=== PATIENT | female | born 1945 | race Caucasian/White ===

== ENCOUNTER → 2025-07-28 | Outpatient (CLI) | payer MEDICARE, SELFPAY ==
--- NOTE | 2025-07-28 12:38 | ECHOD_ITS ---
Reason For Study Reason For Study: ECTOPY Procedure This was a 2D Doppler, Color Flow transthoracic echocardiogram. Exam performed in department. Left Ventricle Normal-sized left ventricle. Normal left ventricular wall thickness. Left ventricular EF by Chang's biplane: 75%. Normal diastolic function. No regional wall motion abnormalities noted. Right Ventricle Normal right ventricle. Normal systolic function. Estimated RVSP less than 30 mmHg. Atria The left and right atria are normal. RA pressure estimated at 3 mmHg. Normal atrial septum. Mitral Valve Normal mitral valve. No mitral stenosis. Trace mitral regurgitation. Tricuspid Valve Normal tricuspid valve. Trace tricuspid regurgitation. No tricuspid stenosis. Aortic Valve Thickened aortic valve leaflets. Valve appears trileaflet. No aortic regurgitation. No hemodynamically significant aortic stenosis. Pulmonic Valve Normal pulmonic valve. Trace pulmonic regurgitation. No pulmonic stenosis. Great Vessels Aortic root and thoracic ascending aorta are poorly visualized on this examination. Pericardium/Pleural No pericardial effusion. Epicardial fat. MMode/2D Measurements & Calculations LVIDd: 4.1 cm IVSd: 0.81 cm LAV(MOD- bp): 34.4 ml LVIDs: 2.5 cm LVPWd: 0.93 cm LAV(MOD- bp) Indexed: 21.4 ml/m2 RVDd: 2.7 cm FS: 39.8 % LAV(MOD- sp2): 32.1 ml LAV(MOD- sp4): 36.6 ml SV(MOD- sp4): 32.4 ml LVAd ap4: 18.6 cm2 LVAd ap2: 21.0 cm2 LVLd ap4: 6.5 cm LVLd ap2: 7.1 cm SI(MOD- sp4): 20.2 ml/m2 EDV(MOD-sp4): 43.5 ml EDV(MOD-sp2): 52.8 ml EDV(sp4-el): 45.2 ml EDV(sp2-el): 52.8 ml LVAs ap4: 8.0 cm2 LVAs ap2: 8.2 cm2 LVLs ap4: 5.0 cm LVLs ap2: 5.3 cm ESV(MOD-sp4): 11.1 ml ESV(MOD-sp2): 11.1 ml ESV(sp4-el): 10.9 ml ESV(sp2-el): 10.8 ml EF(MOD-sp4): 74.5 % EF(MOD-sp2): 78.9 % EF(sp4-el): 75.9 % SV(MOD-sp2): 41.6 ml SV(sp4-el): 34.3 ml LA A4 area: 14.3 cm2 SI(MOD-sp2): 26.0 ml/m2 LA dimension(2D): 3.1 cm TAPSE: 2.1 cm RA A4 area: 10.1 cm2 Time Measurements MV dec time: 0.23 sec Doppler Measurements & Calculations MV E max lanre: 87.6 cm/sec Lat Peak E' Lanre: 14.7 cm/sec Med Peak E' Lanre: 9.0 cm/sec MV A max lanre: 90.8 cm/sec E/E' lat: 5.9 E/E' med: 9.7 MV E/A: 0.96 MV dec slope: 388.0 cm/sec2 Ao V2 max: 138.0 cm/sec LV V1 max: 126.5 cm/sec Ao max P.6 mmHg LV V1 max P.4 mmHg Ao V2 mean: 94.2 cm/sec LV V1 mean P.4 mmHg Ao mean P.0 mmHg LV V1 mean: 86.5 cm/sec Ao V2 VTI: 27.7 cm LV V1 VTI: 25.9 cm AV (velocity ratio): 0.94 PA V2 max: 129.7 cm/sec TR max lanre: 229.2 cm/sec TR max P.0 mmHg ECHO/Echo Complete Interpretation Summary Rhythm consistent with sinus rhythm with ectopic beats. Normal size left ventricle Normal left ventricular systolic function Normal left ventricular diastolic function Normal right ventricular systolic function No hemodynamically significant valvular disease Ordering Physician: Adam Valentin Referring Physician: Maura Ferguson Performed By: Sanjuana Ibrahim RDCS
== END | disposition home or self-care (01) ==
PROVIDERS: PCP Pediatrics; Referring Provider Student in an Organized Health Care Education/Training Program; Visit Provider Student in an Organized Health Care Education/Training Program
DX: I49.3 Ventricular premature depolarization (principal)
CPT/HCPCS: 93306